=== PATIENT | female | born 1985 | race Caucasian/White ===

== ENCOUNTER 2018-05-14 20:06 | Emergency (ER) | payer MEDICAID, OTHER ==
[2018-05-14 20:25] VITALS: BP 142/87; PULSE 69; RESP 16; TEMP 98.3
--- NOTE | 2018-05-14 21:26 | ED ---
Female Urogenital HPI - General Chief complaint: Urogenital Stated complaint: vaginal bleeding Time Seen by Provider: 05/14/18 21:25 Source: patient Mode of arrival: ambulatory Limitations: no limitations - History of Present Illness Initial comments: Sienna is a 33-year-old female who presents to the emergency department today for evaluation of blood in her urine. Patient reports that for 2 days she's been experiencing painless blood in her urine. She states initially she thought she had started her menses so she laced a tampon however even with a tampon in place when she urinated she noticed some blood clots. Patient has no history of hematuria in the past. She does state that she has a history of urinary tract infections in the past but with these had dysuria and urinary frequency which she is not experiencing today. Patient reports that she is sexually active with one partner, she has minimal concern for any sexual transmitted infection but would like to be tested and treated today. denies additional fevers, chills, nausea, vomiting, abdominal pain or change in bowel or bladder habits. - Related Data Home Medications Medication Instructions Recorded Confirmed Multivitamins, Thera [Multivitamin] 1 tab PO DAILY 08/02/16 05/14/18 Dextroamphetamine/Amphetamine 30 mg PO BID 05/14/18 05/14/18 [Adderall] Fexofenadine/Pseudoephedrine 1 tab PO DAILY 05/14/18 05/14/18 [Fozia-D 24 Hour Tablet] Seasonale 1 tab PO DAILY 05/14/18 05/14/18 Previous Rx's Medication Instructions Recorded Nitrofurantoin Monohyd/M-Cryst 100 mg PO Q12HR #14 cap 05/14/18 [Macrobid] Allergies Allergy/AdvReac Type Severity Reaction Status Date / Time ciprofloxacin [From Cipro] Allergy Unknown Verified 05/14/18 21:41 Penicillins Allergy Unknown Verified 05/14/18 21:41 Sulfa (Sulfonamide Allergy Unknown Verified 05/14/18 21:41 Antibiotics) Review of Systems ROS Statement: Those systems with pertinent positive or pertinent negative responses have been documented in the HPI. ROS Other: All systems not noted in ROS Statement are negative. Past Medical History Past Medical History: No Reported History History of Any Multi-Drug Resistant Organisms: None Reported Past Surgical History: No Surgical Hx Reported Past Psychological History: ADD/ADHD Smoking Status: Never smoker Past Alcohol Use History: None Reported Past Drug Use History: None Reported General Exam - General Exam Comments Initial Comments: Physical Exam GENERAL: Patient is well-developed and well-nourished. Patient is nontoxic and well- hydrated and is in no distress. HENT: Normocephalic, Atraumatic. EYES: PERRL, EOMI PULMONARY: Unlabored respirations. No audible rales rhonchi or wheezing was noted. CARDIOVASCULAR: There is a regular rate and rhythm without any murmurs gallops or rubs. ABDOMEN: Soft and nontender with normal bowel sounds. SKIN: Skin is clear with no lesions or rashes and otherwise unremarkable. : Normal external genitalia, logic vaginal discharge with dark blood, closed cervical os Cervix with post operative changes consistent with multiple LEEP procedures in the past. NEUROLOGIC: Patient is alert and oriented x3. Moving all extremities spontaneously MUSCULOSKELETAL: Normal extremities with adequate strength and full range of motion. No lower extremity swelling or edema. No calf tenderness. PSYCHIATRIC: Normal psychiatric evaluation. Limitations: no limitations Limitations: no limitations Course Vital Signs 05/14/18 20:23 Temperature 98.3 F Pulse Rate 69 Respiratory 16 Rate Blood Pressure 142/87 O2 Sat by Pulse 100 Oximetry Medical Decision Making - Medical Decision Making The patient was seen and evaluated, history is obtained from the patient Labs and meds ordered Pelvic exam with no adnexal tenderness, no CMT, no purulent discharge from the cervix no evidence of PID Urinalysis is consistent with a urinary tract infection, patient's ALLERGIES were reviewed and the patient was prescribed Macrobid. First dose was given in the emergency department. Return parameters were discussed. Patient was advised that STD testing does not result in the ER and that she will be notified if there is any positives. Patient was advised that if she wants she can call on Thursday to discuss her results. Return parameters discussed all questions pertaining care were answered best my ability the patient was discharged home in stable condition. - Lab Data Lab Results 05/14/18 05/14/18 05/14/18 Range/Units 22:12 22:12 22:12 Urine Color Yellow Urine Appearance Cloudy H (Clear) Urine pH 7.0 (5.0-8.0) Ur Specific [place] 1.020 (1.001-1.035) Urine Protein 1+ H (Negative) Urine Glucose (UA) Negative (Negative) Urine Ketones Negative (Negative) Urine Blood Large H (Negative) Urine Nitrite Positive H (Negative) Urine Bilirubin Negative (Negative) Urine Urobilinogen <2.0 (<2.0) mg/dL Ur Leukocyte Esterase Large H (Negative) Urine RBC >182 H (0-5) /hpf Urine WBC >182 H (0-5) /hpf Urine WBC Clumps Many H (None) /hpf Ur Squamous Epith Cells 5 H (0-4) /hpf Urine Bacteria Many H (None) /hpf Urine Mucus Few H (None) /hpf Urine HCG, Qual Not Detected (Not Detectd) Trichomonas Ag (Rapid) Negative (Negative) Disposition Clinical Impression: Urinary tract infection Disposition: HOME SELF-CARE Instructions: Urinary Tract Infection in Women (ED) Prescriptions: Nitrofurantoin Monohyd/M-Cryst [Macrobid] 100 mg PO Q12HR #14 cap Is patient prescribed a controlled substance at d/c from ED?: No Referrals: Heri Long MD [Primary Care Provider] - 1-2 days
[2018-05-14] MEDS ORDERED: AZITHROMYCIN 500 MG TAB PO STA (21:45)
[2018-05-14] MEDS ORDERED: cefTRIAXone 250 MG VIAL IM STA (21:45)
[2018-05-14 22:51] LABS: Appearance,Urine Cloudy (Clear); Bacteria,Urine Many /hpf; Bilirubin,Urine Negative (Negative); Blood,Urine Large (Negative); Color,Urine Yellow; Glucose,Urine (UA) Negative (Negative); Ketones,Urine Negative (Negative); Leukocyte Esterase,Urine Large (Negative); Mucus,Urine Few /hpf; Nitrite,Urine Positive (Negative); Protein,Urine 1+ (Negative); RBC,Urine >182 /hpf (0-5); Squamous Epithelial Cell,Urine 5 /hpf (0-4); Urobilinogen,Urine <2.0 mg/dL (<2.0); WBC,Urine >182 /hpf (0-5)
[2018-05-14] MEDS ORDERED: NITROFURANTOIN MONOHYD/M-CRYST 100 MG CAP PO STA (23:08)
== END 2018-05-14 23:42 | disposition home or self-care (01) ==
LOC: EC 20:06
DX: N39.0 Urinary tract infection, site not specified (principal); F90.9 Attention-deficit hyperactivity disorder, unspecified type; Z79.3 Long term (current) use of hormonal contraceptives; Z79.899 Other long term (current) drug therapy; Z88.0 Allergy status to penicillin; Z88.1 Allergy status to other antibiotic agents; Z88.2 Allergy status to sulfonamides
CPT/HCPCS: 81001; 81025; 87070; 87086; 87205; 87491; 87591; 87808; 96372; 99284

== ENCOUNTER 2018-08-06 11:34 | Emergency (ER) | payer MEDICAID, OTHER ==
[2018-08-06 11:39] VITALS: RESP 18
[2018-08-06] MEDS ORDERED: SODIUM CHLORIDE 0.9% 500 ML 500 ML IV STA (12:04)
[2018-08-06] MEDS ORDERED: KETOROLAC 60 MG/2 ML VIAL IVP STA (12:05)
[2018-08-06 12:33] LABS: Basophils # (A) 0.1 k/uL (0-0.2); Basophils % (A) 0 %; Eosinophils # (A) 0.2 k/uL (0-0.7); Eosinophils % (A) 1 %; HCT 48.8 % (34.0-46.0); HGB 15.6 gm/dL (11.4-16.0); Lymphocytes # (A) 0.4 k/uL (1.0-4.8); Lymphocytes % (A) 3 %; MCH 28.6 pg (25.0-35.0); MCHC 31.9 g/dL (31.0-37.0); MCV 89.5 fL (80.0-100.0); Mean Platelet Volume 7.3; Monocytes # (A) 0.7 k/uL (0-1.0); Monocytes % (A) 6 %; Neutrophils # (A) 11.1 k/uL (1.3-7.7); Neutrophils % (A) 89 %; Platelet Count 282 k/uL (150-450); RBC 5.44 m/uL (3.80-5.40); RDW 13.3 % (11.5-15.5); WBC 12.5 k/uL (3.8-10.6)
[2018-08-06 12:45] LABS: Appearance,Urine Cloudy (Clear); Bacteria,Urine Occasional /hpf; Bilirubin,Urine Negative (Negative); Blood,Urine Negative (Negative); Color,Urine Yellow; Glucose,Urine (UA) Negative (Negative); Ketones,Urine Negative (Negative); Leukocyte Esterase,Urine Small (Negative); Mucus,Urine Rare /hpf; Nitrite,Urine Negative (Negative); Protein,Urine Trace (Negative); RBC,Urine 2 /hpf (0-5); Specific Gravity,Urine 1.022 (1.001-1.035); Squamous Epithelial Cell,Urine 61 /hpf (0-4); Urobilinogen,Urine <2.0 mg/dL (<2.0); WBC,Urine 6 /hpf (0-5)
[2018-08-06 12:52] LABS: ALT 23 U/L (9-52); AST 25 U/L (14-36); Albumin 4.3 g/dL (3.5-5.0); Alkaline Phosphatase 43 U/L (38-126); Amylase 55 U/L (30-110); Anion Gap 4 mmol/L; Blood Urea Nitrogen 14 mg/dL (7-17); Calcium 9.4 mg/dL (8.4-10.2); Carbon Dioxide 29 mmol/L (22-30); Chloride 108 mmol/L (98-107); Glucose 114 mg/dL (74-99); Lipase 66 U/L (23-300); Potassium 4.5 mmol/L (3.5-5.1); Sodium 141 mmol/L (137-145); Total Bilirubin 0.5 mg/dL (0.2-1.3); Total Protein 6.9 g/dL (6.3-8.2)
--- NOTE | 2018-08-06 13:20 | ED ---
General Adult HPI - General Chief complaint: Abdominal Pain Stated complaint: abdominal pain/vomiting Time Seen by Provider: 08/06/18 11:35 Source: patient, RN notes reviewed Mode of arrival: ambulatory Limitations: no limitations - History of Present Illness Initial comments: This is a 33-year-old female who presents emergency Department complaining that at 5 AM she woke up with left-sided lower abdominal pain. Patient states the pain is since subsided and now she seems to have more pain and right upper quadrant. Patient states she had her last menstrual period 2 weeks ago. Patient denies being sexually active this time. Patient denies any dysuria hematuria urinary frequency. Patient states the pain made her nauseated but she has not vomited. Patient denies any diarrhea. She denies any previous abdominal surgeries. Patient denies any back pain. Patient denies any fever chills or cough per patient denies any chest pain difficulty breathing. - Related Data Home Medications Medication Instructions Recorded Confirmed Dextroamphetamine/Amphetamine 30 mg PO TID 05/14/18 08/06/18 [Adderall] Allergies Allergy/AdvReac Type Severity Reaction Status Date / Time ciprofloxacin [From Cipro] Allergy Unknown Verified 08/06/18 11:55 Penicillins Allergy Unknown Verified 08/06/18 11:55 Sulfa (Sulfonamide Allergy Unknown Verified 08/06/18 11:55 Antibiotics) Review of Systems ROS Statement: Those systems with pertinent positive or pertinent negative responses have been documented in the HPI. ROS Other: All systems not noted in ROS Statement are negative. Past Medical History Past Medical History: No Reported History History of Any Multi-Drug Resistant Organisms: None Reported Past Surgical History: No Surgical Hx Reported Past Psychological History: ADD/ADHD Smoking Status: Never smoker Past Alcohol Use History: None Reported Past Drug Use History: None Reported General Exam - General Exam Comments Initial Comments: GENERAL: Patient is well-developed and well-nourished. Patient is nontoxic and well- hydrated and is in mild distress. ENT: Neck is soft and supple. No significant lymphadenopathy is noted. Oropharynx is clear. Moist mucous membranes. Neck has full range of motion without eliciting any pain. EYES: The sclera were anicteric and conjunctiva were pink and moist. Extraocular movements were intact and pupils were equal round and reactive to light. Eyelids were unremarkable. PULMONARY: Unlabored respirations. Good breath sounds bilaterally. No audible rales rhonchi or wheezing was noted. CARDIOVASCULAR: There is a regular rate and rhythm without any murmurs gallops or rubs. ABDOMEN: Minimal right upper quadrant tenderness. No palpable organomegaly was noted. There is no palpable pulsatile mass. SKIN: Skin is clear with no lesions or rashes and otherwise unremarkable. NEUROLOGIC: Patient is alert and oriented x3. Cranial nerves II through XII are grossly intact. Motor and sensory are also intact. Normal speech, volume and content. Symmetrical smile. MUSCULOSKELETAL: Normal extremities with adequate strength and full range of motion. No lower extremity swelling or edema. No calf tenderness. LYMPHATICS: No significant lymphadenopathy is noted PSYCHIATRIC: Normal psychiatric evaluation. Limitations: no limitations Course Vital Signs 08/06/18 08/06/18 11:36 14:04 Temperature 98.0 F 97.8 F Pulse Rate 78 77 Respiratory 18 18 Rate Blood Pressure 126/77 110/69 O2 Sat by Pulse 100 100 Oximetry Medical Decision Making - Medical Decision Making Ultrasound showed no torsion. Did Show a Right-Sided Cyst and Some Free Fluid Which Would Be Consistent with a Ruptured Cyst. I Went Back into Reevaluate the Patient after She Got Toradol and She Was Doing Much Better and Stated Her Pain Was Almost Completely Gone. Patient Did State That Her Pain Did Seem to Move As She Would Move in Bed. - Lab Data Result diagrams: 08/06/18 12:09 08/06/18 12:09 Lab Results 08/06/18 08/06/18 08/06/18 Range/Units 12:09 12:09 12:20 WBC 12.5 H (3.8-10.6) k/uL RBC 5.44 H (3.80-5.40) m/uL Hgb 15.6 (11.4-16.0) gm/dL Hct 48.8 H (34.0-46.0) % MCV 89.5 (80.0-100.0) fL MCH 28.6 (25.0-35.0) pg MCHC 31.9 (31.0-37.0) g/dL RDW 13.3 (11.5-15.5) % Plt Count 282 (150-450) k/uL Neutrophils % 89 % Lymphocytes % 3 % Monocytes % 6 % Eosinophils % 1 % Basophils % 0 % Neutrophils # 11.1 H (1.3-7.7) k/uL Lymphocytes # 0.4 L (1.0-4.8) k/uL Monocytes # 0.7 (0-1.0) k/uL Eosinophils # 0.2 (0-0.7) k/uL Basophils # 0.1 (0-0.2) k/uL Sodium 141 (137-145) mmol/L Potassium 4.5 (3.5-5.1) mmol/L Chloride 108 H (98-107) mmol/L Carbon Dioxide 29 (22-30) mmol/L Anion Gap 4 mmol/L BUN 14 (7-17) mg/dL Creatinine 0.63 (0.52-1.04) mg/dL Est GFR (CKD-EPI)AfAm >90 (>60 ml/min/1.73 sqM) Est GFR (CKD-EPI)NonAf >90 (>60 ml/min/1.73 sqM) Glucose 114 H (74-99) mg/dL Calcium 9.4 (8.4-10.2) mg/dL Total Bilirubin 0.5 (0.2-1.3) mg/dL AST 25 (14-36) U/L ALT 23 (9-52) U/L Alkaline Phosphatase 43 (38-126) U/L Total Protein 6.9 (6.3-8.2) g/dL Albumin 4.3 (3.5-5.0) g/dL Amylase 55 (30-110) U/L Lipase 66 (23-300) U/L Urine Color Urine Appearance (Clear) Urine pH (5.0-8.0) Ur Specific [place] (1.001-1.035) Urine Protein (Negative) Urine Glucose (UA) (Negative) Urine Ketones (Negative) Urine Blood (Negative) Urine Nitrite (Negative) Urine Bilirubin (Negative) Urine Urobilinogen (<2.0) mg/dL Ur Leukocyte Esterase (Negative) Urine RBC (0-5) /hpf Urine WBC (0-5) /hpf Ur Squamous Epith Cells (0-4) /hpf Urine Bacteria (None) /hpf Urine Mucus (None) /hpf Urine HCG, Qual Not Detected (Not Detectd) 08/06/18 Range/Units 12:20 WBC (3.8-10.6) k/uL RBC (3.80-5.40) m/uL Hgb (11.4-16.0) gm/dL Hct (34.0-46.0) % MCV (80.0-100.0) fL MCH (25.0-35.0) pg MCHC (31.0-37.0) g/dL RDW (11.5-15.5) % Plt Count (150-450) k/uL Neutrophils % % Lymphocytes % % Monocytes % % Eosinophils % % Basophils % % Neutrophils # (1.3-7.7) k/uL Lymphocytes # (1.0-4.8) k/uL Monocytes # (0-1.0) k/uL Eosinophils # (0-0.7) k/uL Basophils # (0-0.2) k/uL Sodium (137-145) mmol/L Potassium (3.5-5.1) mmol/L Chloride (98-107) mmol/L Carbon Dioxide (22-30) mmol/L Anion Gap mmol/L BUN (7-17) mg/dL Creatinine (0.52-1.04) mg/dL Est GFR (CKD-EPI)AfAm (>60 ml/min/1.73 sqM) Est GFR (CKD-EPI)NonAf (>60 ml/min/1.73 sqM) Glucose (74-99) mg/dL Calcium (8.4-10.2) mg/dL Total Bilirubin (0.2-1.3) mg/dL AST (14-36) U/L ALT (9-52) U/L Alkaline Phosphatase (38-126) U/L Total Protein (6.3-8.2) g/dL Albumin (3.5-5.0) g/dL Amylase (30-110) U/L Lipase (23-300) U/L Urine Color Yellow Urine Appearance Cloudy H (Clear) Urine pH 8.0 (5.0-8.0) Ur Specific [place] 1.022 (1.001-1.035) Urine Protein Trace H (Negative) Urine Glucose (UA) Negative (Negative) Urine Ketones Negative (Negative) Urine Blood Negative (Negative) Urine Nitrite Negative (Negative) Urine Bilirubin Negative (Negative) Urine Urobilinogen <2.0 (<2.0) mg/dL Ur Leukocyte Esterase Small H (Negative) Urine RBC 2 (0-5) /hpf Urine WBC 6 H (0-5) /hpf Ur Squamous Epith Cells 61 H (0-4) /hpf Urine Bacteria Occasional H (None) /hpf Urine Mucus Rare H (None) /hpf Urine HCG, Qual (Not Detectd) Disposition Clinical Impression: Ovarian cyst rupture Disposition: HOME SELF-CARE Condition: Good Instructions: Ovarian Cyst (ED) Additional Instructions: Patient should take Motrin 600 mg every 6 hours Is patient prescribed a controlled substance at d/c from ED?: No Referrals: Heri Long MD [Primary Care Provider] - 1-2 days Time of Disposition: 15:41
--- NOTE | 2018-08-06 15:20 | US ---
EXAMINATION TYPE: Pneumonia right lower lobe DATE OF EXAM: Upper limits of normal COMPARISON: NONE CLINICAL HISTORY: There is mild right lower lobe infiltrate predominantly medially. This has improved comparison. Continued follow-up is recommended.. ABD pain, vomiting TECHNIQUE: Improving right lower lobe pneumonia. Continued follow-up to clearing is recommended.. T ransvaginal sonographic images of the pelvis were acquired. Date of LMP: 07/24/2018 EXAM MEASUREMENTS: Uterus: 6.8 x 4.5 x 4.4 cm Endometrial Stripe: 1.3 cm Right Ovary: 3.7 x 3.1 x 3.3 cm Left Ovary: 3.3 x 1.9 x 2.8 cm 1. Uterus: Retroverted wnl 2. Endometrium: wnl 3. Right Ovary: Cyst= 2.6 x 2.5 x 2.3 4. Left Ovary: wnl Spectral, color and waveform doppler imaging shows good arterial and venous flow within the ovaries ; there is no evidence for ovarian torsion. 5. Bilateral Adnexa: wnl 6. Posterior cul-de-sac: Small amount of free fluid IMPRESSION: 08/03/2018
[2018-08-06 16:03] VITALS: BP 114/77; PULSE 71; TEMP 98.2
== END 2018-08-06 16:01 | disposition home or self-care (01) ==
LOC: EC 11:34
DX: N83.201 Unspecified ovarian cyst, right side (principal); F90.9 Attention-deficit hyperactivity disorder, unspecified type; Z79.899 Other long term (current) drug therapy; Z88.1 Allergy status to other antibiotic agents; Z88.0 Allergy status to penicillin; Z88.2 Allergy status to sulfonamides
CPT/HCPCS: 36415; 80053; 82150; 83690; 85025; 81001; 81025; 93975; 76830; 99284; 96374; J1885

== ENCOUNTER 2023-12-24 11:45 | Emergency (ER) | payer OTHER ==
[2023-12-24 12:59] LABS: Basophils # (A) 0.1 k/uL (0-0.2); Basophils % (A) 1 %; Eosinophils # (A) 0.1 k/uL (0-0.7); Eosinophils % (A) 1 %; HCT 42.8 % (34.0-46.0); HGB 13.6 gm/dL (11.4-16.0); Lymphocytes % (A) 11 %; MCH 27.7 pg (25.0-35.0); MCHC 31.7 g/dL (31.0-37.0); MCV 87.5 fL (80.0-100.0); Mean Platelet Volume 8.5; Monocytes # (A) 0.5 k/uL (0-1.0); Monocytes % (A) 5 %; Neutrophils # (A) 7.1 k/uL (1.3-7.7); Neutrophils % (A) 81 %; Platelet Count 205 k/uL (150-450); RBC 4.89 m/uL (3.80-5.40); RDW 13.6 % (11.5-15.5); WBC 8.7 k/uL (3.8-10.6)
[2023-12-24 13:08] VITALS: TEMP 97.4
[2023-12-24 13:13] LABS: ALT 29 U/L (4-34); AST 43 U/L (14-36); African American GFR (CKD) >90 (>60 ml/min/1.73 sqM); Albumin 5.2 g/dL (3.5-5.0); Alkaline Phosphatase 51 U/L (38-126); Anion Gap 7 mmol/L; Blood Urea Nitrogen 11 mg/dL (7-17); Calcium 9.1 mg/dL (8.4-10.2); Carbon Dioxide 23 mmol/L (22-30); Chloride 103 mmol/L (98-107); Glucose 100 mg/dL (74-99); Non-African American GFR(CKD) >90 (>60 ml/min/1.73 sqM); Potassium 3.7 mmol/L (3.5-5.1); Sodium 133 mmol/L (137-145); Total Bilirubin 0.5 mg/dL (0.2-1.3); Total Protein 8.2 g/dL (6.3-8.2)
[2023-12-24 13:19] LABS: Appearance,Urine Clear (Clear); Bacteria,Urine Rare /hpf; Bilirubin,Urine Negative (Negative); Blood,Urine Trace (Negative); Color,Urine Light Yellow; Glucose,Urine (UA) Negative (Negative); Ketones,Urine Negative (Negative); Leukocyte Esterase,Urine Negative (Negative); Mucus,Urine Rare /hpf; Nitrite,Urine Negative (Negative); PH, Urine 6.5 (5.0-8.0); Protein,Urine Trace (Negative); RBC,Urine <1 /hpf (0-5); Squamous Epithelial Cell,Urine 4 /hpf (0-4); Urobilinogen,Urine <2.0 mg/dL (<2.0); WBC,Urine 2 /hpf (0-5)
[2023-12-24 13:20] LABS: INR 0.9 (<1.2); Partial Thromboplastin Time 22.2 sec (22.0-30.0); Prothrombin Time 9.9 sec (10.0-12.5)
[2023-12-24] MEDS: SODIUM CHLORIDE 0.9% 1,000 ML IV STA (13:23)
--- NOTE | 2023-12-24 13:43 | XR ---
EXAMINATION TYPE: XR chest 2V DATE OF EXAM: 12/24/2023 COMPARISON: None INDICATION: Syncope TECHNIQUE: Frontal and lateral views of the chest are obtained. FINDINGS: The heart size is normal. The pulmonary vasculature is normal. The lungs are clear. IMPRESSION: 1. No acute pulmonary process.
--- NOTE | 2023-12-24 14:15 | ED ---
General Adult HPI - General Chief complaint: Syncope Stated complaint: Syncope Time Seen by Provider: 12/24/23 11:50 Source: patient, family Mode of arrival: wheelchair Limitations: no limitations - History of Present Illness Initial comments: 38-year-old female presents emergency department reporting syncope. States that she was at work when it got extremely hot. She could feel herself developing, palpitations and tunnel vision. States that the next thing she knew she woke up on the floor with a coworker around her. She states she feels completely back to her normal baseline at this time. No history of cardiac disease. Is any current chest pain or shortness of breath. No nausea or vomiting. Denies any injuries from falling. No concern for . No other alleviating, precipitating modifying factors - Related Data Home Medications Medication Instructions Recorded Confirmed Dextroamphetamine/Amphetamine 30 mg PO BID@0900,1400 05/14/18 12/24/23 [Adderall] Dextroamphetamine/Amphetamine 30 mg PO DIRECTED 12/24/23 12/24/23 [Adderall Xr 30 mg Capsule] Multivitamins, Thera [Multivitamin 1 tab PO DAILY 12/24/23 12/24/23 (formulary)] Allergies Allergy/AdvReac Type Severity Reaction Status Date / Time ciprofloxacin [From Cipro] Allergy hives Verified 12/24/23 14:13 Penicillins Allergy Rash/Hives Verified 12/24/23 14:13 Sulfa (Sulfonamide Allergy Rash/Hives Verified 12/24/23 14:13 Antibiotics) Review of Systems ROS Statement: Those systems with pertinent positive or pertinent negative responses have been documented in the HPI. ROS Other: All systems not noted in ROS Statement are negative. Past Medical History Past Medical History: No Reported History History of Any Multi-Drug Resistant Organisms: None Reported Past Surgical History: No Surgical Hx Reported Past Psychological History: ADD/ADHD Past Alcohol Use History: None Reported Past Drug Use History: None Reported General Exam Limitations: no limitations General appearance: alert, in no apparent distress Head exam: Present: atraumatic, normocephalic, normal inspection Eye exam: Present: normal appearance, PERRL, EOMI. Absent: scleral icterus, conjunctival injection, periorbital swelling ENT exam: Present: normal exam, mucous membranes moist Neck exam: Present: normal inspection. Absent: tenderness, meningismus, lymphadenopathy Respiratory exam: Present: normal lung sounds bilaterally. Absent: respiratory distress, wheezes, rales, rhonchi, stridor Cardiovascular Exam: Present: regular rate, normal rhythm, normal heart sounds. Absent: systolic murmur, diastolic murmur, rubs, gallop, clicks GI/Abdominal exam: Present: soft, normal bowel sounds. Absent: distended, tenderness, guarding, rebound, rigid Extremities exam: Present: normal inspection, full ROM, normal capillary refill. Absent: tenderness, pedal edema, joint swelling, calf tenderness Back exam: Present: normal inspection Neurological exam: Present: alert, oriented X3, CN II-XII intact Psychiatric exam: Present: normal affect, normal mood Skin exam: Present: warm, dry, intact, normal color. Absent: rash Course Vital Signs 12/24/23 12/24/23 11:46 14:24 Temperature 97.4 F L Pulse Rate 62 67 Respiratory 14 16 Rate Blood Pressure 140/96 117/74 O2 Sat by Pulse 100 99 Oximetry Medical Decision Making - Medical Decision Making Was pt. sent in by a medical professional or institution (, PA, CARD PUNCHING MACHINE OPERATOR, urgent care, hospital, or longterm...) When possible be specific @ -No Did you speak to anyone other than the patient for history (EMS, parent, family, police, friend...)? What history was obtained from this source @ -I spoke with EMS for history Did you review nursing and triage notes (agree or disagree)? Why? @ -I reviewed and agree with nursing and triage notes Were old charts reviewed (outside hosp., previous admission, EMS record, old EKG, old radiological studies, urgent care reports/EKG's, longterm records)? Report findings @ -No old charts were reviewed Differential Diagnosis (chest pain, altered mental status, abdominal pain women, abdominal pain men, vaginal bleeding, weakness, fever, dyspnea, syncope, headache, dizziness, GI bleed, back pain, seizure, CVA, palpatations, mental health, musculoskeletal)? @ -Differential Syncope: Valvular disease, hypertrophic cardiomyopathy, pulmonary embolism, tamponade, tachycardia, bradycardia, [place], hypovolemia, hemorrhage, dissection, anemia, intracranial hemorrhage, seizure, hypoglycemia, carbon monoxide poisoning, this is not meant to be an all-inclusive list. EKG interpreted by me (3pts min.). @ -Yes and demonstrates sinus bradycardia with a rate of 55. KS interval 146. QRS 104. QTc of 439. No acute ST segment elevations or depressions X-rays interpreted by me (1pt min.). @ -Yes and demonstrates no acute process CT interpreted by me (1pt min.). @ -None done U/S interpreted by me (1pt. min.). @ -None done What testing was considered but not performed or refused? (CT, X-rays, U/S, labs)? Why? @ -None What meds were considered but not given or refused? Why? @ -None Did you discuss the management of the patient with other professionals (professionals i.e. Dr., PA, CARD PUNCHING MACHINE OPERATOR, lab, RT, psych nurse, social service assistant, escapement matcher, teacher, correction officer, rn field case manager)? Give summary @ -No Was smoking cessation discussed for >3mins.? @ -No Was critical care preformed (if so, how long)? @ -No Were there social determinants of health that impacted care today? How? (Home lessness, low income, unemployed, alcoholism, drug addiction, transportation, low edu. Level, literacy, decrease access to med. care, skilled nursing, rehab)? @ -No Was there de-escalation of care discussed even if they declined (Discuss DNR or withdrawal of care, Hospice)? DNR status @ -No What co-morbidities impacted this encounter? (DM, HTN, Smoking, COPD, CAD, Cancer, CVA, ARF, Chemo, Hep., AIDS, mental health diagnosis, sleep apnea, morbid obesity)? @ -None Was patient admitted / discharged? Hospital course, mention meds given and route, prescriptions, significant lab abnormalities, going to OR and other pertinent info. @ -Discharged. Upon arrival patient seen and evaluated in [place] [address]. [facility] history and physical exam was performed. 12 lead EKG was obtained. Laboratory studies are conducted. Chest x-ray was performed. Patient was reevaluated and states she feels perfectly fine at this time and would like to go home. Patient instructed to follow-up with her primary care doctor and get an echo. Return for any new or worsening symptoms. Patient agreeable plan was discharged in stable condition Undiagnosed new problem with uncertain prognosis? @ -No Drug Therapy requiring intensive monitoring for toxicity (Heparin, Nitro, Insulin, Cardizem)? @ -No Were any procedures done? @ -No Diagnosis/symptom? @ -Acute syncope Acute, or Chronic, or Acute on Chronic? @ -Acute Uncomplicated (without systemic symptoms) or Complicated (systemic symptoms)? @ -Complicated Side effects of treatment? @ -No Exacerbation, Progression, or Severe Exacerbation? @ -No Poses a threat to life or bodily function? How? (Chest pain, [place], [place], pneumonia, PE, COPD, DKA, ARF, appy, cholecystitis, CVA, Diverticulitis, Homicidal, Suicidal, threat to staff... and all critical care pts) @ -No - Lab Data Result diagrams: 12/24/23 12:42 12/24/23 12:42 Lab Results 12/24/23 12/24/23 12/24/23 Range/Units 12:42 12:42 12:42 WBC 8.7 (3.8-10.6) k/uL RBC 4.89 (3.80-5.40) m/uL Hgb 13.6 (11.4-16.0) gm/dL Hct 42.8 (34.0-46.0) % MCV 87.5 (80.0-100.0) fL MCH 27.7 (25.0-35.0) pg MCHC 31.7 (31.0-37.0) g/dL RDW 13.6 (11.5-15.5) % Plt Count 205 (150-450) k/uL MPV 8.5 Neutrophils % 81 % Lymphocytes % 11 % Monocytes % 5 % Eosinophils % 1 % Basophils % 1 % Neutrophils # 7.1 (1.3-7.7) k/uL Lymphocytes # 1.0 (1.0-4.8) k/uL Monocytes # 0.5 (0-1.0) k/uL Eosinophils # 0.1 (0-0.7) k/uL Basophils # 0.1 (0-0.2) k/uL PT 9.9 L (10.0-12.5) sec INR 0.9 (<1.2) APTT 22.2 (22.0-30.0) sec D-Dimer <0.17 (<0.60) mg/L FEU Sodium (137-145) mmol/L Potassium (3.5-5.1) mmol/L Chloride (98-107) mmol/L Carbon Dioxide (22-30) mmol/L Anion Gap mmol/L BUN (7-17) mg/dL Creatinine (0.52-1.04) mg/dL Est GFR (CKD-EPI)AfAm (>60 ml/min/1.73 sqM) Est GFR (CKD-EPI)NonAf (>60 ml/min/1.73 sqM) Glucose (74-99) mg/dL Calcium (8.4-10.2) mg/dL Total Bilirubin (0.2-1.3) mg/dL AST (14-36) U/L ALT (4-34) U/L Alkaline Phosphatase (38-126) U/L Troponin I (0.000-0.034) ng/mL Total Protein (6.3-8.2) g/dL Albumin (3.5-5.0) g/dL Urine Color Light Yellow Urine Appearance Clear (Clear) Urine pH 6.5 (5.0-8.0) Ur Specific [place] 1.010 (1.001-1.035) Urine Protein Trace H (Negative) Urine Glucose (UA) Negative (Negative) Urine Ketones Negative (Negative) Urine Blood Trace H (Negative) Urine Nitrite Negative (Negative) Urine Bilirubin Negative (Negative) Urine Urobilinogen <2.0 (<2.0) mg/dL Ur Leukocyte Esterase Negative (Negative) Urine RBC <1 (0-5) /hpf Urine WBC 2 (0-5) /hpf Ur Squamous Epith Cells 4 (0-4) /hpf Urine Bacteria Rare H (None) /hpf Urine Mucus Rare H (None) /hpf Urine HCG, Qual (Not Detectd) 12/24/23 12/24/23 12/24/23 Range/Units 12:42 12:42 12:42 WBC (3.8-10.6) k/uL RBC (3.80-5.40) m/uL Hgb (11.4-16.0) gm/dL Hct (34.0-46.0) % MCV (80.0-100.0) fL MCH (25.0-35.0) pg MCHC (31.0-37.0) g/dL RDW (11.5-15.5) % Plt Count (150-450) k/uL MPV Neutrophils % % Lymphocytes % % Monocytes % % Eosinophils % % Basophils % % Neutrophils # (1.3-7.7) k/uL Lymphocytes # (1.0-4.8) k/uL Monocytes # (0-1.0) k/uL Eosinophils # (0-0.7) k/uL Basophils # (0-0.2) k/uL PT (10.0-12.5) sec INR (<1.2) APTT (22.0-30.0) sec D-Dimer (<0.60) mg/L FEU Sodium 133 L (137-145) mmol/L Potassium 3.7 (3.5-5.1) mmol/L Chloride 103 (98-107) mmol/L Carbon Dioxide 23 (22-30) mmol/L Anion Gap 7 mmol/L BUN 11 (7-17) mg/dL Creatinine 0.57 (0.52-1.04) mg/dL Est GFR (CKD-EPI)AfAm >90 (>60 ml/min/1.73 sqM) Est GFR (CKD-EPI)NonAf >90 (>60 ml/min/1.73 sqM) Glucose 100 H (74-99) mg/dL Calcium 9.1 (8.4-10.2) mg/dL Total Bilirubin 0.5 (0.2-1.3) mg/dL AST 43 H (14-36) U/L ALT 29 (4-34) U/L Alkaline Phosphatase 51 (38-126) U/L Troponin I <0.012 (0.000-0.034) ng/mL Total Protein 8.2 (6.3-8.2) g/dL Albumin 5.2 H (3.5-5.0) g/dL Urine Color Urine Appearance (Clear) Urine pH (5.0-8.0) Ur Specific [place] (1.001-1.035) Urine Protein (Negative) Urine Glucose (UA) (Negative) Urine Ketones (Negative) Urine Blood (Negative) Urine Nitrite (Negative) Urine Bilirubin (Negative) Urine Urobilinogen (<2.0) mg/dL Ur Leukocyte Esterase (Negative) Urine RBC (0-5) /hpf Urine WBC (0-5) /hpf Ur Squamous Epith Cells (0-4) /hpf Urine Bacteria (None) /hpf Urine Mucus (None) /hpf Urine HCG, Qual Not Detected (Not Detectd) Disposition Clinical Impression: Vasovagal syncope, Blunt head injury Disposition: HOME SELF-CARE Condition: Stable Instructions (If sedation given, give patient instructions): Syncope (ED) Additional Instructions: Stay hydrated. Follow-up with your primary care doctor. May benefit from an echo of your heart. Return for any new or worsening symptoms Is patient prescribed a controlled substance at d/c from ED?: No Referrals: Renee Cho FNPBC [Primary Care Provider] - 1-2 days Time of Disposition: 14:15
[2023-12-24 15:05] VITALS: BP 117/74; PULSE 67; RESP 16
== END 2023-12-24 14:28 | disposition home or self-care (01) ==
LOC: EC 11:45
DX: S09.90XA Unspecified injury of head, initial encounter (principal); Z88.1 Allergy status to other antibiotic agents; Z88.2 Allergy status to sulfonamides; Z88.0 Allergy status to penicillin; X58.XXXA Exposure to other specified factors, initial encounter
CPT/HCPCS: 36415; 71046; 80053; 81001; 81025; 84484; 85025; 85379; 85610; 85730; 93005; 96360; 99284